=== PATIENT | female | born 1980 | race Caucasian/White ===

== ENCOUNTER 2017-05-24 10:32 | Inpatient (IN) | payer OTHER, MEDICAID ==
[~2017-05-24 10:32] MED LIST: Acetaminophen 500 MG Tab PO ONE
[2017-05-24] MEDS: Dextrose 5%-Lactated Ringers 1,000 ML IV SCH ×2 (11:24→19:42)
[2017-05-24] MEDS ORDERED: Succinylcholine 200 MG/10 ML MDV ONE (11:27)
[2017-05-24] MEDS ORDERED: Ondansetron 4 MG/2 ML SDV ONE ×2 (11:27→14:19)
[2017-05-24] MEDS ORDERED: Neostigmine Methylsulfate 1 MG/ML 5 ML Syringe ONE (11:27)
[2017-05-24] MEDS ORDERED: Dexamethasone 4 MG/ML SDV ONE (11:27)
[2017-05-24] MEDS ORDERED: Propofol 200 MG/20 ML SDV ONE (11:27)
[2017-05-24] MEDS ORDERED: fentaNYL 250 MCG/5 ML SDV ONE (11:27)
[2017-05-24] MEDS ORDERED: Glycopyrrolate 0.2 MG/ML 5 ML MDV ONE (11:27)
[2017-05-24] MEDS ORDERED: Rocuronium 50 MG/5 ML Vial ONE (11:27)
[2017-05-24] MEDS ORDERED: Albuterol/Ipratropium 3.0-0.5 MG/3 ML Neb Soln NEB ONE (11:30)
[2017-05-24] MEDS ORDERED: cefOXitin 2 GM in Sodium Chloride 0.9% 50 ML IV ONE (12:00)
[2017-05-24] MEDS ORDERED: Ropivacaine 56 ML, Dexamethasone 8 MG, EPINEPHrine 0.4 MG, Sodium Chloride 0.9% 21.6 ML NERVRT SCH ×4 (12:00)
[2017-05-24] MEDS ORDERED: HYDROmorphone/Normal Saline 15 MG/30 ML PCA IV PRN (12:34)
[2017-05-24] MEDS ORDERED: Naloxone 0.4 MG/ML SDV IV PRN (12:38)
[2017-05-24] MEDS ORDERED: Midazolam 1 MG/ML 2 ML SDV ONE (12:55)
[2017-05-24] MEDS ORDERED: Bupivacaine 0.5%/EPINEPHrine 1:200,000 50 ML MDV ONE (13:18)
[2017-05-24] MEDS ORDERED: hydrOXYzine HCl 100 MG/2 ML SDV IM ONE (14:03)
[2017-05-24] MEDS ORDERED: Ondansetron 4 MG/2 ML SDV IVPUSH ONE (14:03)
[2017-05-24] MEDS ORDERED: hydrOXYzine HCl 100 MG/2 ML SDV ONE (14:20)
[2017-05-24] MEDS ORDERED: Ondansetron 4 MG/2 ML SDV IVPUSH PRN (16:00)
[2017-05-24] MEDS ORDERED: Albuterol/Ipratropium 3.0-0.5 MG/3 ML Neb Soln INH PRN (16:04)
[2017-05-24] MEDS ORDERED: Pantoprazole 40 MG Vial IVPUSH SCH (17:00)
[2017-05-24] MEDS: cefOXitin 2 GM in Sodium Chloride 0.9% 50 ML IV SCH ×2 (17:18→23:33)
[2017-05-24] MEDS ORDERED: Methocarbamol 500 MG Tab PO SCH (21:00)
[2017-05-24] MEDS ORDERED: Montelukast 10 MG Tab PO SCH (21:00)
[2017-05-24] MEDS: Albuterol/Ipratropium 3.0-0.5 MG/3 ML Neb Soln INH SCH (21:48)
[2017-05-25] MEDS: Acetaminophen/HYDROcodone 325-5 MG Tab PO PRN ×2 (00:32→04:11)
[2017-05-25] MEDS: cefOXitin 2 GM in Sodium Chloride 0.9% 50 ML IV SCH (06:18)
[2017-05-25] MEDS: Dextrose 5%-Lactated Ringers 1,000 ML IV SCH (06:19)
[2017-05-25] MEDS ORDERED: Acetaminophen/Codeine 300-30 MG Tab PO PRN (07:24)
[2017-05-25] MEDS ORDERED: Ondansetron 4 MG Tab.DIS PO PRN (08:05)
[2017-05-25] MEDS ORDERED: Simethicone 80 MG Tab.Chew PO PRN (08:35)
[2017-05-25] MEDS ORDERED: Escitalopram 10 MG Tab PO SCH (09:00)
[2017-05-25] MEDS ORDERED: Aluminum Hydroxide/Magnesium Hydroxide/Simethicone Susp 30 ML Cup PO PRN (09:11)
[2017-05-25] MEDS ORDERED: hydrOXYzine HCl 100 MG/2 ML SDV IM ONE (09:30)
[2017-05-25] MEDS: Albuterol/Ipratropium 3.0-0.5 MG/3 ML Neb Soln INH SCH (10:18)
--- NOTE | 2017-05-25 12:02 | DISCH ---
ADMISSION DIAGNOSES: 1. Chronic cholecystitis and cholelithiasis. 2. Gastroesophageal reflux disease. 3. Depression. 4. Seasonal asthma. 5. Hyperglycemia. DISCHARGE DIAGNOSES: Laparoscopic cholecystectomy and umbilical hernia repair for chronic cholecystitis and cholelithiasis, and umbilical hernia. Date of surgery, 05/24/2017; Heber Hammond MD, surgeon. HISTORY: Helen Hameed is a 36-year-old female with chronic right upper quadrant abdominal pain. After preoperative evaluation and discussion of possible risks and possible complications, she wished to proceed with surgical procedure. HOSPITAL COURSE: Helne had her surgery on 05/24/2017. She had no operative complications. On postop day #1, prior to being discharged, she developed some right shoulder pain and increased gas pressure. She was given Gas-X, which helped; Vistaril 50 mg; and her [place] was changed to Tylenol #3. She was able to be discharged to home. PHYSICAL EXAMINATION: GENERAL: Helen Hameed is a 36-year-old female. VITAL SIGNS: Height is 5 feet 3 inches. Weight is 245 pounds. BMI is 43. TPR 98.7, 65, 18, and blood pressure 130/79. HEENT: Negative. NECK: Supple. HEART: Regular rate and rhythm. LUNGS: Clear. ABDOMEN: Sutures in place. Dressing was taken down. Abdominal binder has been on. EXTREMITIES: Without peripheral edema and no calf pain. DISPOSITION: Discharged to home. CONDITION: Stable and improving. FOLLOWUP APPOINTMENT: Ethel Miller PA-C, on 06/01/2017 at 10 a.m. DISCHARGE MEDICATIONS: Home Medications; 1. Tylenol #3 one to two tabs q.4 hours p.r.n. pain, #40. 2. Albuterol inhaler 1 to 2 puffs q.4 hours p.r.n. wheezing, one inhaler with 6 refills. 3. She is to resume her home medications; Singulair 10 mg p.o. at bedtime, Protonix 40 mg q.24 hours, and Lexapro 10 mg p.o. daily. DISCHARGE DIET: Usual diet as tolerated. Instructed to eat light for a couple of days, to avoid any fatty foods or high spices. Drink 8 to 10 glasses of water a day. ACTIVITY: No lifting greater than 10 pounds for 2 weeks. Activity as tolerated. Driving, do not drive while on pain medication. May shower. Wear abdominal binder for 2 weeks and then as tolerated. Keep operative site clean and dry. DISCHARGE INSTRUCTIONS: Special instructions; notify provider if any fever, nausea, or vomiting. Use incentive spirometer 10 times every hour while awake for 2 weeks.
[2017-05-25] MEDS ORDERED: Pantoprazole 40 MG Tab.CR PO SCH (16:30)
--- NOTE | 2017-06-04 12:56 | OR ---
DATE OF PROCEDURE: 05/24/2017 PREOPERATIVE DIAGNOSIS: Chronic cholecystitis and cholelithiasis. POSTOPERATIVE DIAGNOSES: 1. Chronic cholecystitis and cholelithiasis. 2. Umbilical hernia. OPERATIVE PROCEDURE: Diagnostic laparoscopy followed by: 1. Laparoscopic cholecystectomy (37952). 2. Umbilical hernia repair ([id number]). ANESTHESIA: General. COMMERCIAL FOOD INSTRUCTOR: Ethel Miller PA-C. INDICATIONS FOR PROCEDURE: This is a 36-year-old female presenting with some episodic upper abdominal pain. An ultrasound was obtained which showed some cholelithiasis. Plan is to proceed with a laparoscopic cholecystectomy. Potential risks including bleeding, infection, injury to underlying viscera such as common bile duct and possibility of the stones migrating into the common bile duct requiring additional procedures for correction, possibility of persistent symptoms post cholecystectomy were all reviewed, and the patient wishes to proceed. DETAILS OF PROCEDURE: The patient was taken to the operating room and placed in a supine position. After general endotracheal anesthesia was induced, the abdomen was prepped and draped. A transverse epigastric incision was made. The peritoneal cavity entered under direct vision with an Optiview trocar inflated to 15 mmHg pressure with CO2. Laparoscope was then reinserted. No underlying trocar insertion site injuries were seen. Following this, a 12 mm subumbilical trocar was placed and at that level the patient was noted to have an umbilical hernia. This was roughly 1 cm in diameter and the subumbilical trocar site was placed through the hernia defect to facilitate subsequent repair. The camera was then brought down to the subumbilical trocar site and the bilateral subcostal transverse abdominis plane blocks were then placed using standard solution with direct visualization at the level of the needle from the intraabdominal perspective. The gallbladder was then retracted anteriorly and laterally. The gallbladder was noted to be edematous and quite distended and somewhat koch in appearance consistent with chronic cholecystitis. The gallbladder resection was initiated on the gallbladder neck with Harmonic scalpel and continued around the gallbladder neck and cystic duct junction. Once that area was well delineated as was the adjacent cystic artery, both structures were clipped 3 times proximally and once distally, and the gallbladder neck and cystic duct junction divided as was the cystic artery. The gallbladder was then dissected off the gallbladder bed with Harmonic scalpel and delivered through the upper midline incision, contained multiple stones. At this point, the camera was brought up to the epigastric site once again and using the laparoscopic suture passer, the umbilical hernia closure sutures were placed. These were placed with 0 Vicryl stitch with a transversely oriented positioning of the sutures. Once these were all in place, the trocars were removed, the peritoneal cavity was deflated, drain was felt not to be necessary. The epigastric site was also closed at fascia level with 0 Vicryl stitch and then that along with the umbilical hernia sutures were tied and each incision was closed with 4-0 Vicryl skin stitch. Dressing was applied. The patient was taken to the recovery room in satisfactory condition. Physician assistant surveyor, Ethel Miller, played an essential role in assisting in this case, helping to position the patient, retract structures as needed, as well as suturing and cutting sutures when indicated. Her presence improved patient's safety and decreased the operative time. Heber Hammond MD /[id number]
== END 2017-05-25 10:19 | disposition home or self-care (01) | DRG 419 ==
LOC: JP.SDS 10:32 → JP.MS 10:32 → EDSTATUS 11:00 → JP.MS 14:00
PROVIDERS: ADMIT Surgery; ATTEND Surgery
PROC: 0FT44ZZ Resection of Gallbladder, Percutaneous Endoscopic Approach (ICD-10-PCS; principal; 2017-05-24)
PROC: 0WQF4ZZ Repair Abdominal Wall, Percutaneous Endoscopic Approach (ICD-10-PCS; 2017-05-24)
PROC: 3E0T3BZ Introduction of Anesthetic Agent into Peripheral Nerves and Plexi, Percutaneous Approach (ICD-10-PCS; 2017-05-24)
DX: K80.10 Calculus of gallbladder with chronic cholecystitis without obstruction (principal); K42.9 Umbilical hernia without obstruction or gangrene; K21.9 Gastro-esophageal reflux disease without esophagitis; F34.1 Dysthymic disorder; Z91.09 Other allergy status, other than to drugs and biological substances; Z86.32 Personal history of gestational diabetes; Z88.0 Allergy status to penicillin; Z88.8 Allergy status to other drugs, medicaments and biological substances
CPT/HCPCS: 36415; 80053; 82247; 83036; 83735; 84075; 84100; 85025; 85027; 88304; 94640; 94762; A9270-GY; C9113; J0171; J0330; J0694; J1100; J1170; J2250; J2405; J2704; J2710; J2795; J3010; J3410; J7042; J7050; J7620

== ENCOUNTER 2020-07-25 19:23 | Emergency (ER) | payer MEDICAID, OTHER ==
[2020-07-25] MEDS ORDERED: Labetalol 100 MG/20 ML MDV IV ONE (19:54)
[2020-07-25] MEDS ORDERED: Sodium Chloride 0.9% 10 ML Syringe FLUSH PRN (19:54)
[2020-07-25] MEDS ORDERED: Labetalol 20 MG/4 ML Syringe ONE (19:59)
[2020-07-25] MEDS ORDERED: Labetalol 20 MG/4 ML Syringe IVPUSH ONE (20:08)
[2020-07-25] MEDS ORDERED: Labetalol 100 MG in Sodium Chloride 0.9% 80 ML IV SCH (20:15)
--- NOTE | 2020-07-25 20:22 | EDM.PDOC ---
ED HPI GENERAL MEDICAL PROBLEM - General Chief Complaint: Cardiovascular Problem Stated Complaint: HIGH BLOOD PRESSURE, CHEST TIGHTNESS Time Seen by Provider: 07/25/20 19:50 Source of Information: Reports: Patient History Limitations: Reports: No Limitations - History of Present Illness INITIAL COMMENTS - FREE TEXT/NARRATIVE: Helen is a 39-year-old female presenting to the ED for evaluation of hypertension. The patient was seen in preop for an upcoming tubal ligation and was found to have a markedly elevated blood pressure. She was instructed by her provider to monitor her blood pressure and it is remained exceedingly high. Tonight her pressure was in the 190s over 115 and she did develop some blurred vision prompting her to come in for evaluation. She has had a slight headache as well. The patient was recently diagnosed with diabetes in the end of May and was started on Metformin. She was not able to tolerate that and was switched over to Victoza. He has a BMI of 46.6 kg/m and her hemoglobin A1c is 10. Is not currently on any medications for her blood pressure. She states over the last several days it has been running significantly high despite the goals being less than 130/80. He does have a history for anxiety and whitecoat hypertension, however, even her pressures at home have been elevated. The patient does report that over the last month she has had intermittent episodes of blurred vision that may have been related to her blood pressure. She is also very sensitive to palpitations and is having episodes of ventricular couplets. He denies any chest pain, nausea or vomiting, shortness of breath or diaphoresis. - Related Data Allergies Allergy/AdvReac Type Severity Reaction Status Date / Time amoxicillin [Amoxicillin] Allergy Hives Verified 07/25/20 19:35 Penicillins Allergy Hives Verified 07/25/20 19:35 zolpidem [Zolpidem] Allergy Cannot Verified 07/25/20 19:35 Remember simvastatin AdvReac Muscle Verified 07/25/20 19:35 Aches Home Meds: Home Meds Acetaminophen [Tylenol] 650 mg PO Q6HR PRN 10/14/13 [History] Calcium Carbonate [Tums] 500 mg PO Q1H PRN 10/14/13 [History] Montelukast [Singulair] 10 mg PO DAILY PRN 10/14/13 [History] Multivitamin [Multi-Vitamin Daily] 1 each PO DAILY 10/14/13 [History] Albuterol Sulfate [Ventolin Hfa] 1 - 2 puff IH ASDIRECTED PRN #1 hfa.aer.ad 05/25/17 [Rx] Clarithromycin [Biaxin] 500 mg PO BID 07/25/20 [History] Liraglutide [Victoza] 1.8 units SUBCUT DAILY 07/25/20 [History] Omeprazole 20 mg PO BID 07/25/20 [History] hydrALAZINE [Apresoline] 10 mg PO Q6H #120 tab 07/25/20 [Rx] lisinopriL [Lisinopril] 10 mg PO DAILY #30 tablet 07/25/20 [Rx] metroNIDAZOLE [Metronidazole] 500 mg PO BID 07/25/20 [History] Past Medical History HEENT History: Reports: Allergic Rhinitis Cardiovascular History: Reports: High Cholesterol, Hypertension, Other (See Below) Other Cardiovascular History: normal abnormal PVC's Respiratory History: Reports: Asthma Gastrointestinal History: Reports: Cholelithiasis, GERD, Helicobacter Pylori Genitourinary History: Reports: None ASSOCIATE SOFTWARE ENGINEER History: Reports: Endocrine/Metabolic History: Reports: Diabetes, Gestational, Diabetes, Type II, Obesity/BMI 30+ - Infectious Disease History Infectious Disease History: Reports: MRSA Other Infectious Disease History: MRSA resolved - Past Surgical History HEENT Surgical History: Reports: None Cardiovascular Surgical History: Reports: None Respiratory Surgical History: Reports: None GI Surgical History: Reports: Cholecystectomy Female Surgical History: Reports: Breast Reduction, Section Endocrine Surgical History: Reports: None Social & Family History - Family History Family Medical History: No Pertinent Family History - Tobacco Use Tobacco Use Status *Q: Current Every Day Tobacco User Years of Tobacco use: 22 Packs/Tins Daily: 0.5 - Caffeine Use Caffeine Use: Reports: Coffee - Recreational Drug Use Recreational Drug Use: No Recreational Drug Type: Reports: Marijuana/Hashish ED ROS GENERAL - Review of Systems Review Of Systems: See Below Constitutional: Reports: No Symptoms HEENT: Reports: Vision Change (Blurred vision) Respiratory: Reports: No Symptoms Cardiovascular: Reports: Blood Pressure Problem, Palpitations Endocrine: Reports: No Symptoms GI/Abdominal: Reports: No Symptoms : Reports: No Symptoms Musculoskeletal: Reports: No Symptoms Skin: Reports: No Symptoms Neurological: Reports: Headache Psychiatric: Reports: No Symptoms Hematologic/Lymphatic: Reports: No Symptoms Immunologic: Reports: No Symptoms ED EXAM, GENERAL - Physical Exam Exam: See Below Exam Limited By: No Limitations General Appearance: Alert, No Apparent Distress, Obese Eye Exam: Bilateral Eye: EOMI, PERRL Throat/Mouth: Normal Inspection Head: Atraumatic, Normocephalic Neck: Normal Inspection, Supple, Non-Tender. No: Carotid Bruit, Lymphadenopathy (R), Lymphadenopathy (L) Respiratory/Chest: No Respiratory Distress, Lungs Clear, Normal Breath Sounds Cardiovascular: Normal Peripheral Pulses, Regular Rate, Rhythm, No Murmur Peripheral Pulses: 2+: Radial (L), Radial (R), Posterior Tibial (L), Posterior Tibial (R) GI/Abdominal: Normal Bowel Sounds, Soft, Non-Tender Back Exam: Normal Inspection, Full Range of Motion Extremities: Normal Inspection Neurological: Alert, Oriented, Normal Cognition, No Motor/Sensory Deficits Psychiatric: Anxious Skin Exam: Warm, Dry, Intact, Normal Color Lymphatic: No Adenopathy Course - Vital Signs Last Recorded V/S: Last Vital Signs Temp 36.7 C 07/25/20 19:40 Pulse 79 07/25/20 20:50 Resp 17 07/25/20 20:50 BP 142/64 H 07/25/20 20:59 Pulse Ox 96 07/25/20 20:50 - Orders/Labs/Meds Orders: Active Orders 24 hr Category Date Time Status Labetalol [Normodyne] 100 mg Med 07/25/20 20:15 Active Sodium Chloride 0.9% [Normal Saline] 80 ml IV TITRATE Sodium Chloride 0.9% [Saline Flush] Med 07/25/20 19:54 Active 10 ml FLUSH ASDIRECTED PRN Saline Lock Insert [OM.PC] Routine Oth 07/25/20 19:54 Ordered Medication Orders Labetalol HCl 100 mg/ Sodium (Chloride) 100 mls @ 30 mls/hr IV TITRATE BO; Protocol Sodium Chloride (Saline Flush) 10 ml FLUSH ASDIRECTED PRN PRN Reason: Keep Vein Open Last Admin: 07/25/20 20:07 Dose: 10 ml Documented by: DAGOBERTO Labs: Laboratory Tests 07/25/20 07/25/20 07/25/20 Range/Units 20:10 20:10 20:10 WBC 8.6 (4.5-11.0) K/uL RBC 5.36 (3.30-5.50) M/uL Hgb 14.9 D (12.0-15.0) g/dL Hct 46.0 (36.0-48.0) % MCV 86 (80-98) fL MCH 28 (27-31) pg MCHC 32 (32-36) % Plt Count 183 (150-400) K/uL Sodium 142 (140-148) mmol/L Potassium 3.8 (3.6-5.2) mmol/L Chloride 104 (100-108) mmol/L Carbon Dioxide 27 (21-32) mmol/L Anion Gap 11.5 (5.0-14.0) mmol/L BUN 7 (7-18) mg/dL Creatinine 0.7 (0.6-1.0) mg/dL Est Cr Clr Drug Dosing 84.49 mL/min Estimated GFR (MDRD) > 60 (>60) Glucose 162 H (74-106) mg/dL Calcium 9.3 (8.5-10.1) mg/dL Magnesium 1.9 (1.8-2.4) mg/dL Total Bilirubin 0.3 D (0.2-1.0) mg/dL AST 95 H D (15-37) U/L ALT 153 H (12-78) U/L Alkaline Phosphatase 104 (46-116) U/L Troponin I < 0.017 (0.000-0.056) ng/mL Total Protein 7.5 (6.4-8.2) g/dL Albumin 4.0 (3.4-5.0) g/dL Globulin 3.5 (2.3-3.5) g/dL Albumin/Globulin Ratio 1.1 L (1.2-2.2) TSH, Ultra Sensitive 0.410 (0.358-3.740) uIU/mL Meds: Medications Generic Name Dose Route Start Last Admin Trade Name Freq PRN Reason Stop Dose Admin Labetalol HCl 100 mg/ Sodium 100 mls @ 30 mls/hr 07/25/20 20:15 Chloride IV TITRATE BO Protocol 0.5 MG/MIN Sodium Chloride 10 ml 07/25/20 19:54 07/25/20 20:07 Saline Flush FLUSH 10 ml ASDIRECTED PRN Administration Keep Vein Open Discontinued Medications Generic Name Dose Route Start Last Admin Trade Name Freq PRN Reason Stop Dose Admin Hydralazine HCl 10 mg 07/25/20 21:17 Apresoline PO 07/25/20 21:18 ONETIME STA Labetalol HCl 20 mg 07/25/20 19:54 07/25/20 20:10 Normodyne IV 07/25/20 19:55 Not Given ONETIME ONE Protocol Labetalol HCl Confirm 07/25/20 19:59 07/25/20 20:07 Normodyne Administered 07/25/20 20:00 Not Given Dose 20 mg .ROUTE .STK-MED ONE Labetalol HCl 20 mg 07/25/20 20:08 07/25/20 20:13 Normodyne IVPUSH 07/25/20 20:09 20 mg NOW ONE Administration Protocol Lisinopril 10 mg 07/25/20 21:17 Prinivil PO 07/25/20 21:18 ONETIME ONE - Re-Assessments/Exams Free Text/Narrative Re-Assessment/Exam: 07/25/20 21:18 the patient received labetalol 20 mg IV push and has had improvement of her pressures from the 190s over 115's down to 154/75. She is currently on clarithromycin for treatment of H. pylori which would preclude her from using any beta blockade because of the risk for prolonged QT and torsade de pointes, therefore we will put her on lisinopril 10 mg daily which will also help with her diabetes to protect the kidneys and hydralazine 10 mg 4 times daily starting dose. The patient should follow-up with her primary care provider towards the end of next week for blood pressure check as she may need to have the hydralazine and lisinopril dose adjusted. Labs were reviewed and show normal CBC and comprehensive metabolic panel except for elevation of her transaminases and glucose. May be partially mediated by the Victoza and she should also discuss this with her primary care provider who is managing her diabetes. Feel that we have several weeks to months to get her blood pressure under control with a goal of a pressure less than 120/70 according to the new AHA guidelines for diabetics. Indications return to the ED were discussed and all questions were answered prior to discharge. Departure - Departure Time of Disposition: 21:21 Disposition: Home, Self-Care 01 Condition: Good Clinical Impression: Hypertensive urgency, Elevated liver transaminase level Diabetes type 2, uncontrolled Qualifiers: Glycemic state: with hyperglycemia Qualified Code(s): E11.65 - Type 2 diabetes mellitus with hyperglycemia Prescriptions: hydrALAZINE [Apresoline] 10 mg PO Q6H #120 tab lisinopriL [Lisinopril] 10 mg PO DAILY #30 tablet Referrals: Odette Troncoso PA-C [Primary Care Provider] - Forms: ED Department Discharge Care Plan Goals: We are starting you on lisinopril 10 mg daily which is a blood pressure medicine that will also protect your kidneys from the diabetes. In addition we are starting you on hydralazine 10 mg 4 times a day which is a potent blood pressure medicine. Your lab work today did show elevation of your liver enzymes which may be due to the Victoza. I encourage you to contact your primary care provider to discuss this as she may want to recheck your liver enzymes next week. I would also encourage you to follow-up with your primary care provider next week for recheck of your blood pressure as they may need to adjust your hydralazine and lisinopril to achieve a goal of 120/70 which is the new [place] [employer] guidelines for diabetics. You feel that we have time to achieve that over the next couple of months and that we are out of the dangerous range of a diastolic blood pressure greater than 100. Would keep a diary of your blood pressures and symptoms associated with them until you see your primary care provider. Sepsis Event Note (ED) - Evaluation Sepsis Screening Result: No Definite Risk - Focused Exam Vital Signs: Vital Signs Temp Pulse Resp BP Pulse Ox 07/25/20 20:59 142/64 H 07/25/20 20:50 79 17 163/90 H 96 07/25/20 20:27 142/73 H 07/25/20 20:20 82 15 147/79 H 96 07/25/20 20:10 158/91 H 07/25/20 20:07 143/82 H 07/25/20 19:48 80 13 196/111 H 97 07/25/20 19:40 36.7 C 83 16 189/112 H 97 - Problem List & Annotations (1) Diabetes type 2, uncontrolled SNOMED Code(s): 623557064, 435925572 Code(s): E11.65 - TYPE 2 DIABETES MELLITUS WITH HYPERGLYCEMIA Status: Chronic Priority: High Current Visit: Yes Qualifiers: Glycemic state: with hyperglycemia Qualified Code(s): E11.65 - Type 2 diabetes mellitus with hyperglycemia (2) Elevated liver transaminase level SNOMED Code(s): 491426071 Code(s): R74.01 - ELEVATION OF LEVELS OF LIVER TRANSAMINASE LEVELS Status: Acute Priority: High Current Visit: Yes (3) Hypertensive urgency SNOMED Code(s): 559037036 Code(s): I16.0 - HYPERTENSIVE URGENCY Status: Acute Priority: High Current Visit: Yes - Problem List Review Problem List Initiated/Reviewed/Updated: Yes - My Orders Last 24 Hours: My Active Orders 07/25/20 19:54 Sodium Chloride 0.9% [Saline Flush] 10 ml FLUSH ASDIRECTED PRN Saline Lock Insert [OM.PC] Routine 07/25/20 20:15 Labetalol [Normodyne] 100 mg Sodium Chloride 0.9% [Normal Saline] 80 ml IV TITRATE - Assessment/Plan Last 24 Hours: My Active Orders 07/25/20 19:54 Sodium Chloride 0.9% [Saline Flush] 10 ml FLUSH ASDIRECTED PRN Saline Lock Insert [OM.PC] Routine 07/25/20 20:15 Labetalol [Normodyne] 100 mg Sodium Chloride 0.9% [Normal Saline] 80 ml IV TITRATE
[2020-07-25] MEDS ORDERED: hydrALAZINE 10 MG Tab PO STA (21:17)
[2020-07-25] MEDS ORDERED: Lisinopril 10 MG Tab PO ONE (21:17)
== END 2020-07-25 22:36 | disposition home or self-care (01) ==
LOC: JP.ED 19:23
DX: I16.0 Hypertensive urgency (principal); E11.65 Type 2 diabetes mellitus with hyperglycemia; R74.01 Elevation of levels of liver transaminase levels; I10 Essential (primary) hypertension; K21.9 Gastro-esophageal reflux disease without esophagitis; J45.909 Unspecified asthma, uncomplicated; E11.9 Type 2 diabetes mellitus without complications; E66.9 Obesity, unspecified; Z72.0 Tobacco use; Z88.0 Allergy status to penicillin; Z88.1 Allergy status to other antibiotic agents; Z88.8 Allergy status to other drugs, medicaments and biological substances; Z79.899 Other long term (current) drug therapy
CPT/HCPCS: 36415; 80053; 83735; 84443; 84484; 85027; 96374; 99284; A9270; J3490

== ENCOUNTER 2021-01-03 06:49 | Inpatient (IN) | payer MEDICAID ==
[2021-01-03] MEDS ORDERED: cefOXitin 2 GM Vial ONE (06:58)
[2021-01-03] MEDS ORDERED: Scopolamine 1.5 MG Transdermal Patch TOP ONE (07:00)
[2021-01-03] MEDS ORDERED: Dextrose 5%-Lactated Ringers 1,000 ML IV SCH ×2 (07:00→13:15)
[2021-01-03] MEDS ORDERED: Albuterol/Ipratropium 3.0-0.5 MG/3 ML Neb Soln NEB ONE (07:00)
[2021-01-03] MEDS ORDERED: Acetaminophen 500 MG Tab PO ONE (07:00)
[2021-01-03] MEDS ORDERED: Dexamethasone 4 MG/ML SDV ONE (07:27)
[2021-01-03] MEDS ORDERED: Ondansetron 4 MG/2 ML SDV ONE (07:27)
[2021-01-03] MEDS ORDERED: Propofol 200 MG/20 ML SDV ONE (07:27)
[2021-01-03] MEDS ORDERED: Glycopyrrolate 0.2 MG/ML 5 ML MDV ONE (07:27)
[2021-01-03] MEDS ORDERED: Succinylcholine 200 MG/10 ML MDV ONE (07:27)
[2021-01-03] MEDS ORDERED: Neostigmine Methylsulfate 1 MG/ML 5 ML Syringe ONE (07:27)
[2021-01-03] MEDS ORDERED: Rocuronium 50 MG/5 ML Vial ONE (07:27)
[2021-01-03] MEDS ORDERED: fentaNYL 250 MCG/5 ML SDV ONE ×2 (07:27→10:12)
[2021-01-03] MEDS: Celecoxib 200 MG Cap PO SCH ×2 (07:52→13:11)
[2021-01-03] MEDS ORDERED: cefOXitin 2 GM in Sodium Chloride 0.9% 50 ML IV ONE (08:30)
[2021-01-03] MEDS ORDERED: Lidocaine 1% 2 ML ONE (09:53)
[2021-01-03] MEDS ORDERED: Magnesium Sulfate 3 GM in Sodium Chloride 0.9% 100 ML IV SCH (10:00)
[2021-01-03] MEDS ORDERED: Ketamine 500 MG/5 ML MDV IV SCH (10:00)
[2021-01-03] MEDS ORDERED: Ropivacaine 50 ML, dexAMETHasone 8 MG, EPINEPHrine 0.4 MG, Sodium Chloride 0.9% 27.6 ML NERVRT SCH ×4 (10:00)
[2021-01-03] MEDS ORDERED: Ketamine 50 MG in Sodium Chloride 0.9% 49.5 ML IV SCH (10:00)
[2021-01-03] MEDS ORDERED: Labetalol 20 MG/4 ML Syringe ONE (10:19)
[2021-01-03] MEDS ORDERED: Magnesium Sulfate 3.2 GM in Sodium Chloride 0.9% 250 ML IV ONE (10:30)
[2021-01-03] MEDS ORDERED: hydrOXYzine HCL 100 MG/2 ML SDV IM ONE (12:01)
[2021-01-03] MEDS ORDERED: fentaNYL 100 MCG/2 ML SDV IVPUSH ONE (12:01)
[2021-01-03] MEDS ORDERED: 50% Dextrose in Water 50 ML Syringe IVPUSH PRN (12:11)
[2021-01-03] MEDS ORDERED: Glucagon,Human Recombinant 1 MG Vial IM PRN (12:11)
[2021-01-03] MEDS ORDERED: Insulin Lispro 100 Unit/ML 3 ML KwikPen SUBCUT ONE (12:30)
[2021-01-03] MEDS ORDERED: Non-Formulary Medication 1 Each IV ONE (13:06)
[2021-01-03] MEDS ORDERED: Cyclobenzaprine 10 MG Tab PO PRN (13:12)
[2021-01-03] MEDS: traMADol 50 MG Tab PO PRN (13:28)
[2021-01-03] MEDS ORDERED: Lactated Ringers 1,000 ML IV SCH (13:30)
[2021-01-03] MEDS ORDERED: HYDROmorphone 1 MG/ML Syringe IV PRN (14:00)
[2021-01-03] MEDS ORDERED: Albuterol/Ipratropium 3.0-0.5 MG/3 ML Neb Soln INH PRN (14:00)
[2021-01-03] MEDS ORDERED: Acetaminophen 500 MG Tab PO PRN (14:00)
[2021-01-03] MEDS ORDERED: Ondansetron 4 MG/2 ML SDV IVPUSH PRN (14:00)
[2021-01-03] MEDS ORDERED: HYDROmorphone 0.5 MG/0.5 ML Syringe IVPUSH PRN (14:00)
[2021-01-03] MEDS ORDERED: oxyCODONE 5 MG Tab PO PRN (14:00)
[2021-01-03] MEDS ORDERED: Calcium Gluconate 10% 1 GM/10 ML SDV IVPUSH PRN (14:00)
[2021-01-03] MEDS ORDERED: hydrOXYzine HCL 100 MG/2 ML SDV IM PRN (14:00)
[2021-01-03] MEDS ORDERED: Metoclopramide 10 MG/2 ML SDV IVPUSH PRN (14:00)
[2021-01-03] MEDS ORDERED: Labetalol 20 MG/4 ML Syringe IVPUSH PRN (14:00)
[2021-01-03] MEDS ORDERED: diphenhydrAMINE 50 MG/ML SDV IVPUSH PRN (14:00)
[2021-01-03] MEDS: Lisinopril 20 MG Tab PO SCH (14:37)
[2021-01-03] MEDS: Acetaminophen 500 MG Tab PO SCH ×2 (14:37→21:36)
[2021-01-03] MEDS ORDERED: Pantoprazole 40 MG Vial IVPUSH SCH (15:00)
[2021-01-03] MEDS: MVI, Adult with Vitamin K 10 ML, Thiamine 200 MG, Zinc/Copper/Manganese/Selenium 1 ML i... IV SCH ×4 (16:03)
[2021-01-03] MEDS: cefOXitin 2 GM in Sodium Chloride 0.9% 50 ML IV SCH ×2 (16:03→21:37)
[2021-01-03] MEDS: Albuterol/Ipratropium 3.0-0.5 MG/3 ML Neb Soln INH SCH ×2 (16:03→21:22)
[2021-01-03] MEDS: Insulin Lispro 100 Unit/ML 3 ML KwikPen SUBCUT SCH ×2 (17:06→21:36)
[2021-01-03] MEDS: Heparin Sodium 5,000 Units/ML Vial SUBCUT SCH (17:07)
[2021-01-03] MEDS: Montelukast 10 MG Tab PO SCH ×2 (19:48→21:22)
[2021-01-03] MEDS: Albuterol 8 GM Inhaler INH PRN (23:35)
[2021-01-04] MEDS ORDERED: Iopamidol 612 MG/ML 50 ML SDV PO ONE (03:54)
[2021-01-04] MEDS: cefOXitin 2 GM in Sodium Chloride 0.9% 50 ML IV SCH ×2 (04:02→09:50)
[2021-01-04] MEDS: Insulin Lispro 100 Unit/ML 3 ML KwikPen SUBCUT SCH ×4 (04:49→21:33)
[2021-01-04] MEDS: Heparin Sodium 5,000 Units/ML Vial SUBCUT SCH ×2 (05:00→18:21)
[2021-01-04] MEDS: Albuterol 8 GM Inhaler INH PRN (05:01)
[2021-01-04] MEDS: Albuterol/Ipratropium 3.0-0.5 MG/3 ML Neb Soln INH SCH ×4 (07:14→21:16)
[2021-01-04] MEDS ORDERED: Ondansetron 4 MG Tab.DIS PO PRN (07:15)
[2021-01-04] MEDS ORDERED: hydrOXYzine HCl 25 MG Tab PO PRN (07:18)
--- NOTE | 2021-01-04 08:20 | PN ---
DATE OF SERVICE: 01/04/2021 SUBJECTIVE: Helen is postop day #1 following a laparoscopic Tisha-en-Y gastric bypass surgery. Her upper GI this morning was good. She did have some PVCs during the night, which is normal for her. Slept with a CPAP on and no O2. Blood sugar this morning was 194. Oral intake 1070. Output 2360. ZULLY drain put out 105 mL of a light red drainage. REVIEW OF SYSTEMS: Remainder of review of systems negative for any pertinent positives and negatives. OBJECTIVE: GENERAL: Helen Hameed is a pleasant 40-year-old female. She is alert and orientated. VITAL SIGNS: TPR is 99, 65, 16, blood pressure 119/57. HEENT: Negative. NECK: Supple. HEART: Regular rate and rhythm. LUNGS: Clear. ABDOMEN: Abdominal binder is on and ZULLY drain as above. EXTREMITIES: Without peripheral edema. ASSESSMENT: Laparoscopic Tisha-en-Y gastric bypass surgery, repair of diaphragmatic hernia, partial gastrectomy. 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 Date of procedure: 01/03/2021. Surgeon: Heber Hammond MD. PLAN: 1. Discontinue D5 LR IV. 2. LR IV at 100 mL per hour. 3. Step 2 gastric bypass diet without cereal. 4. May shower. 5. Tylenol changed to liquid Tylenol. 6. Communication order: 3 med cups per hour, record at bedside. 7. Atarax 50 mg q.4 hours p.r.n. pain. 8. Zofran 4 mg ODT q.4 hours p.r.n. nausea. 9. Discontinue telemetry and continuous pulse ox. 10.Encouraged to take the DuoNeb respiratory treatments. She is refusing them. 11.We will evaluate p.r.n. or in a.m. Ethel Miller PA-C /[id number]
[2021-01-04] MEDS: Celecoxib 200 MG Cap PO SCH ×2 (08:33→21:19)
[2021-01-04] MEDS: Acetaminophen Soln 650 MG/20.3 ML UD Cup PO SCH ×2 (08:33→16:03)
[2021-01-04] MEDS: Lisinopril 20 MG Tab PO SCH (08:35)
[2021-01-04] MEDS ORDERED: Lactated Ringers 1,000 ML IV SCH (09:00)
[2021-01-04] MEDS: SCOPOLAMINE PATCH CHECK TOP SCH (09:51)
--- NOTE | 2021-01-04 09:58 | CR ---
UGI Limited HISTORY: Postbariatric surgery FINDINGS: Patient swallowed water-soluble contrast. Upright views of the abdomen show no evidence of extravasation or obstruction. There is a surgical drain in the left upper quadrant IMPRESSION: Status post bariatric surgery No extravasation or obstruction seen
[2021-01-04] MEDS: traMADol 50 MG Tab PO PRN (15:00)
[2021-01-04] MEDS: MVI, Adult with Vitamin K 10 ML, Thiamine 200 MG, Zinc/Copper/Manganese/Selenium 1 ML i... IV SCH ×4 (15:53)
[2021-01-04] MEDS ORDERED: Pantoprazole 40 MG Delayed-Release Granules 1 Packet PO SCH (16:30)
[2021-01-04] MEDS: Montelukast 10 MG Tab PO SCH (21:21)
[2021-01-05] MEDS: Acetaminophen Soln 650 MG/20.3 ML UD Cup PO SCH ×2 (01:48→08:17)
[2021-01-05] MEDS: Insulin Lispro 100 Unit/ML 3 ML KwikPen SUBCUT SCH (05:02)
[2021-01-05] MEDS: Heparin Sodium 5,000 Units/ML Vial SUBCUT SCH (05:08)
[2021-01-05] MEDS: Albuterol/Ipratropium 3.0-0.5 MG/3 ML Neb Soln INH SCH (07:00)
[2021-01-05] MEDS: Celecoxib 200 MG Cap PO SCH (08:17)
[2021-01-05] MEDS: Lisinopril 20 MG Tab PO SCH (08:17)
[2021-01-05] MEDS ORDERED: Cyanocobalamin (Vitamin B12) 1,000 MCG/ML SDV IM ONE (09:00)
[2021-01-05] MEDS: SCOPOLAMINE PATCH CHECK TOP SCH (09:02)
[2021-01-05] MEDS: traMADol 50 MG Tab PO PRN (09:40)
--- NOTE | 2021-01-05 12:01 | DISCH ---
ADMISSION DIAGNOSES: 1. Morbid obesity, BMI is 44.3. 2. Diabetes type 2. 3. Hypertension. 4. Asthma. DISCHARGE DIAGNOSES: 1. Laparoscopic Tisha-en-Y gastric bypass surgery. 2. Repair of diaphragmatic hernia. 3. Partial gastrectomy. POSTOPERATIVE DIAGNOSES: 1. Morbid obesity. 2. Diaphragmatic hernia. 3. 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 Date of procedure 01/03/2021. Surgeon: Heber Hammond MD. HISTORY: Helen Hameed is a pleasant, 40-year-old female with longstanding history of morbid obesity and increasing comorbidities. After preoperative evaluation and discussion of possible risks and possible complications, she wished to proceed with surgical procedure. HOSPITAL COURSE: Helen had her surgery on 01/03/2021. She had no operative complications. On postoperative day #1, her upper GI was normal. She was started on step 2 gastric bypass diet without cereal, and on postop day #2, her oral intake was adequate. Blood sugars were normalizing with her last blood sugar was 131 and oral intake adequate. She received adequate instruction. Pain was managed with energy protocol. Activity was good, and she was able to be discharged to home without any complications on postoperative day #2. PHYSICAL EXAMINATION: GENERAL: Helen is a pleasant 40-year-old female. Height is 5 feet 2 inches, weight is 242 pounds, BMI 44.3. VITAL SIGNS: TPR 98.8, 78, 16, blood pressure 124/78. HEENT: Negative. NECK: Supple. HEART: Regular rate and rhythm. LUNGS: Clear. ABDOMEN: Dressings dry and intact. 4 x 4 will be placed over ZULLY drain once it is removed, and abdominal binder is on. EXTREMITIES: Without peripheral edema. DISPOSITION: Discharged to home. CONDITION: Stable and improving. FOLLOWUP: Appointment with Ethel Miller PA-C, on 01/13/2021 at 8:30 a.m. HOME MEDICATIONS: Zofran ODT 4 mg q.4 hours p.r.n. nausea #30, Celebrex 200 mg p.o. b.i.d. for 2 weeks, Tylenol Extra-Strength 1000 mg p.o. q.8 hours p.r.n. pain. To resume, lisinopril 20 mg p.o. daily, nystatin cream one applicator topical b.i.d., Singulair 10 mg p.o. daily p.r.n., Ventolin inhaler 2 puffs inhalation every 4 hours p.r.n. wheezing. DIET: Step 2 gastric bypass diet without cereal until 01/18/2021, 65 g of protein and 64 ounces of fluid daily. ACTIVITY: No lifting greater than 10 pounds for 2 weeks. DISCHARGE INSTRUCTIONS: Driving, do not drive for 1 week. Shower/bathing: May shower. Keep operative site clean and dry. Wear abdominal binder for 2 weeks and then as tolerated. Notify provider if any fever, increased pain, swelling, redness, drainage, nausea, or vomiting. SPECIAL INSTRUCTION: 1. Use incentive spirometer 10 times every hour while awake for 1 week. 2. Check blood sugars 2 to 3 times a day. Bring record of blood sugars to clinic appointment. /[id number]
--- NOTE | 2021-01-10 15:13 | OR ---
DATE OF PROCEDURE: 01/03/2021 SURGEON: Heber Hammond MD PREOPERATIVE DIAGNOSIS: Morbid obesity. POSTOPERATIVE DIAGNOSES: 1. Morbid obesity. 2. Marked hepatomegaly. 3. Paraesophageal diaphragmatic hernia. 4. Area of gastric ischemia, status post formation of gastric pouch. OPERATIVE PROCEDURES: Diagnostic laparoscopy with: 1. Laparoscopic Tisha-en-Y gastric bypass with long limb gastroenterostomy (30258). 2. Talat-Cut needle liver biopsy (72479). 3. Repair of paraesophageal diaphragmatic hernia (64139). 4. Partial gastrectomy (79724). ANESTHESIA: General. LEMON GROWER: Ethel Miller PA-C. INDICATIONS FOR PROCEDURE: A 40-year-old female presenting with longstanding morbid obesity and increasingly significant comorbidities. After preoperative evaluation and discussion, she wished to proceed with a gastric bypass procedure. Potential risks of the procedure including bleeding, infection, leaks from various GI tract closures, problems with bowel obstruction over time, as well as possibility of cardiopulmonary, septic, or hemorrhagic complications leading to were discussed, and the patient wishes to proceed. DETAILS OF PROCEDURE: The patient was taken to the operating room and placed in a supine position after general endotracheal anesthesia was induced. She was then converted to a lithotomy position and the abdomen was prepped and draped. At 15 cm inferior and 5 cm left of the xiphoid process, a transverse incision was made and the peritoneal cavity entered under direct vision with an Optiview trocar and inflated to 15 mmHg pressure with CO2. Laparoscope was reinserted. No underlying trocar insertion site injuries were seen. Following this, 5 additional trocars were placed across the upper and mid abdomen, and bilateral transversus abdominis plane blocks were placed. The liver was noted to be markedly fatty infiltrated. Talat-Cut needle biopsies were obtained from the left lobe of the liver. Minimal bleeding from the biopsy sites was seen, and the area was cauterized to control this small amount of bleeding. The omentum was then divided in the midline up to the level of the transverse colon. This allowed identification of the small bowel to the ligament of Treitz. Small bowel was then traced out 150 cm distal to that point where it was divided transversely with a DEBBI stapler. Small bowel was then traced out additional 130 cm where the [id number] enteroenterostomy was accomplished with an internal firing of the Endo-DEBBI 60 mm stapler. Common opening was then closed transversely with the same stapler and angles anastomosed and mesenteric defect approximated with some 0 Ethibond stitch along with 4 mL of fibrin sealant. The divided end of the Tisha limb was then from the mesentery for a few centimeters which allowed an antecolic position of the Tisha limb up to the level of the gastroesophageal junction without tension. The liver was then retracted anteriorly. The patient was noted to have a moderate-sized paraesophageal diaphragmatic hernia containing some preperitoneal fat, gastric fundus, and a small tongue of omentum. This was then reduced and the peritoneum overlying it incised and reflected downward. The hernia was then repaired anteriorly with a series of 0 Ethibond sutures reinforced with PTFE pledgets. The gastrointestinal balloon catheter was then inflated to 15 mL and pulled up snugly against the EG junction. The gastric wall over the apex of the balloon was then marked with electrocautery and balloon catheter deflated and pulled up from the esophagus. The lesser omental tissue was then divided, allowing dissection behind the stomach along the gastric cardia. The pouch formation was initiated with a transverse firing of the DEBBI stapler at the level of the cauterized beck on the gastric cardia and completed with additional firings up to and through the angle of His. Upon completion of the pouch, both staple lines were noted to be intact. There was, however, an area of ischemia in the upper edge of the bypassed stomach, and this was resected as additional partial gastrectomy with a DEBBI stapler and delivered from the field. The anvil of a 25 mm EEA stapler was then attached to a [place] sump type tube. The latter was brought down through the mouth, taken out a small opening in the gastric pouch allowing the anvil likewise to be pulled down to within the gastric pouch. Divided end of the Tisha limb was then opened and the main body of the EEA stapler was brought up through a length in the small bowel up to the anvil and united with it, thus creating the gastrojejunostomy. Upon removal of the stapler, double donuts of mucosa were noted within it. The small bowel was closed off with a vascular staple line. Gastrojejunostomy was reinforced with some 3-0 Vicryl seromuscular stitch along with fibrin sealant. A leak test was accomplished with injection of 120 mL of air in the gastric pouch while it was submerged with cefoxitin- containing saline solution. No leaks were identified. A single Dirk-Mcmanus drain was taken out through the left lateral trocar site and positioned adjacent to the gastrojejunostomy, and from there, up into the splenic fossa. The trocars were sequentially removed, peritoneal cavity was deflated, the incision closed with 4-0 Vicryl skin stitch, and the drain was affixed with a 4-0 Vicryl stitch as well. The patient was taken to the recovery room in satisfactory condition. Physician him assistant, Ethel Miller, played an essential role in assisting in this case, helping to position the patient, retract structures as needed, as well as suturing and cutting sutures when indicated. Her presence improved the patient's safety and decreased the operative time. Heber Hammond MD /[id number]
== END 2021-01-05 10:17 | disposition home or self-care (01) | DRG 619 ==
LOC: JP.MS 06:49 → JP.SDS 06:49 → EDSTATUS 08:15 → JP.MS 11:50
PROVIDERS: ADMIT Surgery; ATTEND Surgery
PROC: 0D164ZA Bypass Stomach to Jejunum, Percutaneous Endoscopic Approach (ICD-10-PCS; principal; 2021-01-03)
PROC: 0FB24ZX Excision of Left Lobe Liver, Percutaneous Endoscopic Approach, Diagnostic (ICD-10-PCS; 2021-01-03)
PROC: 0BQT4ZZ Repair Diaphragm, Percutaneous Endoscopic Approach (ICD-10-PCS; 2021-01-03)
PROC: 0DB64ZZ Excision of Stomach, Percutaneous Endoscopic Approach (ICD-10-PCS; 2021-01-03)
DX: E66.01 Morbid (severe) obesity due to excess calories (principal); K55.051 Focal (segmental) acute (reversible) ischemia of intestine, part unspecified; K44.9 Diaphragmatic hernia without obstruction or gangrene; E11.9 Type 2 diabetes mellitus without complications; E78.5 Hyperlipidemia, unspecified; I10 Essential (primary) hypertension; G47.33 Obstructive sleep apnea (adult) (pediatric); J45.909 Unspecified asthma, uncomplicated; Z79.4 Long term (current) use of insulin; Z79.899 Other long term (current) drug therapy; Z88.0 Allergy status to penicillin; Z88.8 Allergy status to other drugs, medicaments and biological substances; Z88.5 Allergy status to narcotic agent
CPT/HCPCS: 36415; 74240; 74240-26; 81025; 82947; 86850; 86900; 86901; 88307; 88313; 94640; 94762; A9270-GY; C9113; J0171; J0330; J0694; J1100; J1170; J1644; J1815; J2405; J2704; J2710; J2765; J2795; J3010; J3410; J3411; J3420; J3475; J3490; J7050; J7120; J7121; J7620-GY; Q9967

== ENCOUNTER 2022-09-18 07:34 | Day surgery (SDC) | payer MEDICAID ==
[~2022-09-18 07:34] MED LIST changes: +Bupivacaine 0.5% 50 ML MDV ONE; +Lidocaine 1% with EPINEPHrine 1:100,000 50 ML MDV ONE; +Midazolam 1 MG/ML 2 ML SDV ONE; +Propofol 200 MG/20 ML SDV ONE; +fentaNYL 100 MCG/2 ML SDV ONE
[2022-09-18] MEDS ORDERED: Dextrose 5%-Lactated Ringers 1,000 ML IV SCH (08:00)
[2022-09-18] MEDS ORDERED: Albuterol/Ipratropium 3.0-0.5 MG/3 ML Neb Soln NEB ONE (08:00)
[2022-09-18] MEDS ORDERED: ceFAZolin 2 GM in Premix Bag 1 BAG IV ONE (08:30)
[2022-09-18] MEDS ORDERED: Bacitracin Oint 1 GM U/D Packet ONE (09:22)
== END 2022-09-18 11:01 | disposition home or self-care (01) ==
LOC: JP.SDS 07:34
PROVIDERS: ATTEND Surgery
DX: M79.89 Other specified soft tissue disorders (principal); G47.33 Obstructive sleep apnea (adult) (pediatric); F17.200 Nicotine dependence, unspecified, uncomplicated
CPT/HCPCS: 11401; 12032; 88304; 94640; A9270; J0690; J2250; J2704; J3010; J3490; J7121; J7620

== ENCOUNTER 2022-11-21 07:15 | Inpatient (IN) | payer MEDICAID ==
[2022-11-21] MEDS ORDERED: Propofol 200 MG/20 ML SDV ONE (08:03)
[2022-11-21] MEDS ORDERED: fentaNYL 250 MCG/5 ML SDV ONE (08:03)
[2022-11-21] MEDS ORDERED: fentaNYL 100 MCG/2 ML SDV ONE ×2 (08:03→13:40)
[2022-11-21] MEDS ORDERED: Neostigmine Methylsulfate 1 MG/ML 5 ML Syringe ONE (08:04)
[2022-11-21] MEDS ORDERED: Succinylcholine 200 MG/10 ML MDV ONE (08:04)
[2022-11-21] MEDS ORDERED: Rocuronium 50 MG/5 ML Vial ONE (08:04)
[2022-11-21] MEDS ORDERED: Dexamethasone 4 MG/ML SDV ONE (08:04)
[2022-11-21] MEDS ORDERED: Glycopyrrolate 0.2 MG/ML 5 ML MDV ONE (08:04)
[2022-11-21] MEDS ORDERED: Ondansetron 4 MG/2 ML SDV ONE (08:04)
[2022-11-21] MEDS ORDERED: Meropenem 500 MG SDV ONE (09:44)
[2022-11-21] MEDS ORDERED: Bupivacaine 0.5% 50 ML MDV ONE (09:44)
[2022-11-21] MEDS ORDERED: Lidocaine 1% with EPINEPHrine 1:100,000 50 ML MDV ONE (09:45)
[2022-11-21] MEDS ORDERED: Celecoxib 200 MG Cap PO ONE (10:15)
[2022-11-21] MEDS ORDERED: Scopolamine 1.5 MG Transdermal Patch TOP ONE (10:15)
[2022-11-21 10:25] LABS: HEMOGLOBIN A1C 5.3 % (4.5-6.2)
[2022-11-21 10:44] LABS: PHOSPHORUS 3.8 mg/dL (2.5-4.9)
[2022-11-21] MEDS ORDERED: Albuterol/Ipratropium 3.0-0.5 MG/3 ML Neb Soln NEB ONE (11:00)
[2022-11-21] MEDS ORDERED: Dextrose 5%-Lactated Ringers 1,000 ML IV SCH ×2 (11:00→16:00)
[2022-11-21] MEDS ORDERED: Ropivacaine 28 ML, dexAMETHasone 8 MG, EPINEPHrine 0.4 MG, Sodium Chloride 0.9% 49.6 ML NERVRT SCH ×4 (11:30)
[2022-11-21] MEDS ORDERED: Linezolid 600 MG in Premix Bag 1 BAG IV ONE (11:30)
[2022-11-21] MEDS ORDERED: Ketamine 15 MG in Sodium Chloride 0.9% 19.85 ML IV SCH (11:30)
[2022-11-21] MEDS ORDERED: Ketamine 500 MG/5 ML MDV IV SCH (11:30)
[2022-11-21] MEDS ORDERED: Linezolid 600 MG/300 ML Premix Bag IRR ONE (13:51)
[2022-11-21] MEDS ORDERED: Mupirocin Oint 22 GM Tube ONE (13:53)
[2022-11-21] MEDS ORDERED: Lactated Ringers 1,000 ML ONE (14:00)
[2022-11-21] MEDS ORDERED: diphenhydrAMINE 50 MG/ML SDV IVPUSH PRN ×2 (14:13→16:00)
[2022-11-21] MEDS ORDERED: HYDROmorphone/Normal Saline 6 MG/30 ML PCA Vial IV PRN (14:13)
[2022-11-21] MEDS ORDERED: diphenhydrAMINE 25 MG Cap PO PRN (14:13)
[2022-11-21] MEDS ORDERED: Ondansetron 4 MG/2 ML SDV IVPUSH PRN ×2 (14:13→16:00)
[2022-11-21] MEDS ORDERED: Naloxone 0.4 MG/ML SDV IVPUSH PRN (14:13)
[2022-11-21] MEDS ORDERED: Naloxone 0.4 MG/ML SDV IV PRN (15:00)
[2022-11-21] MEDS ORDERED: Cyclobenzaprine 10 MG Tab PO PRN (15:46)
[2022-11-21] MEDS ORDERED: Metoclopramide 10 MG/2 ML SDV IVPUSH PRN (16:00)
[2022-11-21] MEDS ORDERED: Acetaminophen 500 MG Tab PO PRN (16:00)
[2022-11-21] MEDS ORDERED: hydrOXYzine HCL 100 MG/2 ML SDV IM PRN (16:00)
[2022-11-21] MEDS ORDERED: Albuterol/Ipratropium 3.0-0.5 MG/3 ML Neb Soln INH PRN (16:00)
[2022-11-21] MEDS ORDERED: Labetalol 20 MG/4 ML Syringe IVPUSH PRN (16:00)
[2022-11-21] MEDS ORDERED: Pantoprazole 40 MG Vial IVPUSH SCH (16:00)
[2022-11-21] MEDS: MVI, Adult with Vitamin K 10 ML, Thiamine 200 MG, Zinc/Copper/Manganese/Selenium 1 ML i... IV SCH ×4 (16:43)
[2022-11-21] MEDS: Heparin Sodium 5,000 Units/ML Vial SUBCUT SCH (19:40)
[2022-11-21] MEDS: Albuterol/Ipratropium 3.0-0.5 MG/3 ML Neb Soln INH SCH (20:12)
[2022-11-21] MEDS: Acetaminophen 500 MG Tab PO SCH (21:11)
[2022-11-22] MEDS: Linezolid 600 MG in Premix Bag 1 BAG IV SCH ×2 (00:58→12:22)
[2022-11-22] MEDS: Acetaminophen 500 MG Tab PO SCH ×3 (05:27→21:40)
[2022-11-22] MEDS: Albuterol/Ipratropium 3.0-0.5 MG/3 ML Neb Soln INH SCH ×4 (06:58→21:41)
[2022-11-22] MEDS ORDERED: Ondansetron 4 MG Tab.DIS PO PRN (07:56)
[2022-11-22] MEDS ORDERED: oxyCODONE 5 MG Tab PO PRN (07:57)
[2022-11-22] MEDS ORDERED: Dextrose 5%-Lactated Ringers 1,000 ML IV SCH (08:00)
[2022-11-22] MEDS: Celecoxib 200 MG Cap PO SCH ×2 (08:48→21:39)
[2022-11-22] MEDS: Heparin Sodium 5,000 Units/ML Vial SUBCUT SCH ×2 (08:48→19:47)
[2022-11-22] MEDS: SCOPOLAMINE PATCH CHECK TOP SCH (08:49)
[2022-11-22] MEDS: Bisacodyl 5 MG Tab PO SCH ×2 (13:17→21:42)
[2022-11-22] MEDS: Docusate Sodium 100 MG Cap PO SCH ×2 (13:17→21:42)
[2022-11-22] MEDS: MVI, Adult with Vitamin K 10 ML, Thiamine 200 MG, Zinc/Copper/Manganese/Selenium 1 ML i... IV SCH ×4 (15:10)
[2022-11-22] MEDS ORDERED: Pantoprazole 40 MG Tab.CR PO SCH (16:00)
[2022-11-23] MEDS: Acetaminophen 500 MG Tab PO SCH (05:48)
[2022-11-23] MEDS: Albuterol/Ipratropium 3.0-0.5 MG/3 ML Neb Soln INH SCH (07:29)
[2022-11-23] MEDS: Heparin Sodium 5,000 Units/ML Vial SUBCUT SCH (07:36)
[2022-11-23] MEDS: Docusate Sodium 100 MG Cap PO SCH (08:51)
[2022-11-23] MEDS: Bisacodyl 5 MG Tab PO SCH (08:51)
[2022-11-23] MEDS: Celecoxib 200 MG Cap PO SCH (08:51)
[2022-11-23] MEDS: SCOPOLAMINE PATCH CHECK TOP SCH (08:52)
[2022-11-23] MEDS ORDERED: Cyanocobalamin (Vitamin B12) 1,000 MCG/ML SDV IM ONE (09:00)
== END 2022-11-23 10:20 | disposition home or self-care (01) | DRG 355 ==
LOC: JP.SDSSCHI 09:47 → JP.2SS 14:10
PROVIDERS: ADMIT Surgery; ATTEND Surgery
PROC: 0WQF0ZZ Repair Abdominal Wall, Open Approach (ICD-10-PCS; principal; 2022-11-21)
PROC: 0JB80ZZ Excision of Abdomen Subcutaneous Tissue and Fascia, Open Approach (ICD-10-PCS; 2022-11-21)
DX: K42.0 Umbilical hernia with obstruction, without gangrene (principal); K43.0 Incisional hernia with obstruction, without gangrene; M79.3 Panniculitis, unspecified; J45.909 Unspecified asthma, uncomplicated; E78.5 Hyperlipidemia, unspecified; G47.33 Obstructive sleep apnea (adult) (pediatric); F17.210 Nicotine dependence, cigarettes, uncomplicated; E66.9 Obesity, unspecified; Z90.49 Acquired absence of other specified parts of digestive tract; Z98.84 Bariatric surgery status; Z90.89 Acquired absence of other organs; Z98.890 Other specified postprocedural states; Z88.0 Allergy status to penicillin; Z88.8 Allergy status to other drugs, medicaments and biological substances; Z88.1 Allergy status to other antibiotic agents; Z88.5 Allergy status to narcotic agent; Z68.22 Body mass index [BMI] 22.0-22.9, adult
CPT/HCPCS: 36415; 82728; 82947; 83036; 83735; 84100; 88302; 94640; A9270-GY; C9113; J0131; J0171; J0330; J1100; J1170; J1644; J2020; J2185; J2405; J2704; J2710; J2795; J3010; J3411; J3490; J7120; J7121; J7620; Q0162